=== PATIENT | female | born 1960 | race Caucasian/White ===

== ENCOUNTER 2016-10-21 12:39 | Outpatient (CLI) | payer OTHER ==
--- NOTE | 2016-10-21 15:12 | XRAY Report ---
EXAM: CHEST RADIOGRAPHY EXAM DATE: 10/21/2016 12:50 PM. CLINICAL HISTORY: HEMOPNEUMOTHORAX. COMPARISON: 09/14/2016. TECHNIQUE: 2 views. FINDINGS: Lungs/Pleura: There is right costophrenic sulcus opacity. Interval decrease in volume of right pleura l fluid. No evidence of pneumothorax. No evidence of focal infiltrate. Mediastinum: Heart and mediastinal contours are unremarkable. Other: There are remote displaced right-sided rib fractures. IMPRESSION: 1. Lung volumes and heart size within normal limits. 2. Interval decrease in volume of right effusion. There is persistent right pleural opacity which may represent residual effusion and/or pleural thickening. 3. There are remote right-sided rib fractures. 4. There is no evidence of pneumothorax. [facility] Referring Provider Line: [phone] SITE ID: [id number]
== END 2016-10-21 12:40 | disposition home or self-care (01) ==
LOC: DI 12:39
PROVIDERS: ATTEND Family Medicine
DX: J90 Pleural effusion, not elsewhere classified (principal)
CPT/HCPCS: 71020

== ENCOUNTER 2016-11-25 08:33 | Outpatient (CLI) | payer OTHER ==
--- NOTE | 2016-11-27 06:16 | CT Report ---
EXAM: CT CHEST AND ABDOMEN EXAM DATE: 11/25/2016 08:56 AM. CLINICAL HISTORY: Multiple fractures of ribs, right side, sequela. COMPARISONS: 11/14/2014. TECHNIQUE: Routine helical CT imaging was performed through the chest and abdomen. IV contrast: None Per physician order. Interpreting radiologist not involved with protocoling this study. Enteric contr ast: No. Reconstructions: Coronal and sagittal. In accordance with CT protocol optimization, one or more of the following dose reduction techniques w ere utilized for this exam: automated exposure control, adjustment of mA and/or KV based on patient s ize, or use of iterative reconstructive technique. FINDINGS: Lungs/Pleura: No pneumothorax or hemothorax. Mild right lower lobe scarring/atelectasis. No pneumonia or effusion. No suspicious mass or nodule seen. Mediastinum: No mediastinal hematoma. Heart and aorta appear unremarkable. No bulky adenopathy. Noncontrast abdominal organs: Grossly unremarkable noncontrast appearance to the liver, gallbladder, pancreas, adrenals, kidneys, and spleen with exception of a fatty liver. Peritoneal Cavity/Bowel: Bowel appears grossly unremarkable where seen. Pelvis not included on study. No free air or fluid seen. Vasculature: [id number] atherosclerotic disease of the aorta and branches. No aneurysm seen. Bones: Multilevel right-sided subacute and chronic appearing rib fractures. Right third through eight h rib fractures appear at least subacute and segmental. The lateral sixth through eighth right-sided rib fractures are moderately displaced with incomplete bony union. Mildly to moderately displaced posterior right ninth and tenth rib fractures. No left-sided rib fractures seen. No spinal fracture identified. Other: None. IMPRESSION: 1. Multiple right-sided rib fractures as above. No pneumothorax or hemothorax. 2. No gross abdominal organ injury on this suboptimal non-IV contrast study. 3. Fatty liver. [facility] Referring Provider Line: [phone] SITE ID: [id number]
== END 2016-11-25 08:34 | disposition home or self-care (01) ==
LOC: DI 08:33
PROVIDERS: ATTEND Family Medicine
DX: S22.41XD Multiple fractures of ribs, right side, subsequent encounter for fracture with routine healing (principal)
CPT/HCPCS: 71250; 74150

== ENCOUNTER 2017-03-10 12:34 | Outpatient (CLI) | payer OTHER ==
--- NOTE | 2017-03-11 00:02 | XRAY Report ---
EXAM: CHEST RADIOGRAPHY EXAM DATE: 03/10/2017 01:32 PM. CLINICAL HISTORY: CHEST WALL PAIN. COMPARISON: 10/21/2016. TECHNIQUE: 2 views. FINDINGS: Lungs/Pleura: No focal opacities evident. No pleural effusion. No pneumothorax. Normal volumes. Mediastinum: Heart and mediastinal contours are unremarkable. Other: There are remote right-sided rib fractures. IMPRESSION: 1. There are remote right-sided rib fractures. 2. No acute intrathoracic plain film abnormality. [facility] Referring Provider Line: [phone] SITE ID: [id number]
== END 2017-03-10 12:35 | disposition home or self-care (01) ==
LOC: DI 12:34
PROVIDERS: ATTEND Family Medicine
DX: R07.89 Other chest pain (principal); S22.41XS Multiple fractures of ribs, right side, sequela
CPT/HCPCS: 71046

== ENCOUNTER 2018-06-28 15:30 | Outpatient (CLI) | payer OTHER ==
--- NOTE | 2018-06-29 15:05 | XRAY Report ---
Reason: REACTIVE AIRWAY DISEASE Procedure Date: 06/28/2018 Accession Number: [id number] / [id number] Procedure: [facility] - Chest 2 View X-Ray CPT Code: 17667 FULL RESULT: EXAM: CHEST RADIOGRAPHY EXAM DATE: 06/28/2018 03:39 PM. CLINICAL HISTORY: REACTIVE AIRWAY DISEASE. COMPARISON: CHEST 2 VIEW 03/10/2017 1:26 PM. TECHNIQUE: 2 views. FINDINGS: Lungs/Pleura: No focal opacities evident. No pleural effusion. No pneumothorax. Normal volumes. Mediastinum: Heart and mediastinal contours are unremarkable. Other: There are remote right lateral rib fractures. IMPRESSION: No acute intrathoracic plain film abnormality. [facility]
== END 2018-06-28 15:31 | disposition home or self-care (01) ==
LOC: DI.WCP 15:30
PROVIDERS: ATTEND Physician Assistant Medical
DX: J45.909 Unspecified asthma, uncomplicated (principal)
CPT/HCPCS: 71046

== ENCOUNTER 2019-03-12 07:47 | Outpatient (CLI) | payer OTHER ==
--- NOTE | 2019-03-12 15:38 | XRAY Report ---
Reason: MULTIPLE RIB FRACTURES RIGHT SIDE Procedure Date: 03/12/2019 Accession Number: [id number] / [id number] Procedure: [facility]CP - Chest 2 View X-Ray CPT Code: 68697 Final Report FULL RESULT: EXAM: CHEST RADIOGRAPHY EXAM DATE: 03/12/2019 07:47 AM. CLINICAL HISTORY: MULTIPLE RIB FRACTURES RIGHT SIDE. COMPARISON: CHEST 2 VIEW 06/28/2018 3:24 PM CHEST 2 VIEW 03/10/2017 1:26 PM. TECHNIQUE: 2 views. FINDINGS: Lungs/Pleura: No focal opacities evident. No pleural effusion. Minimal blunting of the lateral right costophrenic sulcus suggesting pleural thickening, as before. No pneumothorax. Normal volumes. Mediastinum: Heart and mediastinal contours are unremarkable. Other: Multiple old lateral right rib fractures, as before. IMPRESSION: 1. Multiple chronic lateral right rib fractures, as before. 2. Lungs are clear. [facility]
== END 2019-03-12 23:59 | disposition home or self-care (01) ==
LOC: DI.WCP 07:47
PROVIDERS: ATTEND Family Medicine
DX: S22.41XS Multiple fractures of ribs, right side, sequela (principal)
CPT/HCPCS: 71046

== ENCOUNTER → 2019-03-12 | Outpatient (CLI) | payer OTHER ==
[2019-03-12 13:01] LABS: ALBUMIN 3.8 g/dL (3.2-5.5); ALBUMIN/GLOBULIN RATIO 1.3 (1.0-2.2); BILIRUBIN,TOTAL 0.6 mg/dL (0.2-1.0); CALCIUM 8.5 mg/dL (8.5-10.3); CREATININE 0.8 mg/dL (0.4-1.0); TOTAL PROTEIN 6.7 g/dL (6.7-8.2)
[2019-03-12 13:07] LABS: BASOPHILS # (AUTO) 0.1 10^3/uL (0.0-0.1); BASOPHILS % (AUTO) 0.7 %; EOSINOPHILS # (AUTO) 0.2 10^3/uL (0.0-0.7); EOSINOPHILS % (AUTO) 2.5 %; HGB - HEMOGLOBIN 13.3 g/dL (12.0-16.0); MEAN CORPUSCULAR HEMOGLOBIN 30.9 pg (27.0-31.0); MEAN CORPUSCULAR HGB CONC 32.4 g/dL (32.0-36.0); MEAN CORPUSCULAR VOLUME 95.1 fL (81.0-99.0); MEAN PLATELET VOLUME 10.1 fL (7.9-10.8); MONOCYTES # (AUTO) 0.6 10^3/uL (0.0-1.0); MONOCYTES % (AUTO) 8.6 %; NEUTROPHILS # (AUTO) 3.2 10^3/uL (1.5-6.6); NEUTROPHILS % (AUTO) 45.8 %; PLT - PLATELET COUNT 247 10^3/uL (130-450); RED BLOOD COUNT 4.31 10^6/uL (4.20-5.40); RED CELL DISTRIBUTION WIDTH 12.6 % (12.0-15.0); WHITE BLOOD COUNT 7.1 x10^3/uL (4.8-10.8)
[2019-03-12 13:12] LABS: PT - PROTHROMBIN TIME 11.1 secs (9.9-12.6)
[2019-03-12 13:30] LABS: BILIRUBIN,URINE NEGATIVE (NEGATIVE); GLUCOSE, URINE (UA) NEGATIVE (NEGATIVE); KETONES,URINE (UA) NEGATIVE (NEGATIVE); LEUKOCYTE ESTERASE, URINE NEGATIVE (NEGATIVE); NITRITE,URINE NEGATIVE (NEGATIVE); OCCULT BLOOD,URINE NEGATIVE (NEGATIVE); PROTEIN,URINE NEGATIVE (NEGATIVE); UROBILINOGEN,URINE 0.2 (NORMAL) E.U./dL (NORMAL)
[2019-03-12 13:32] LABS: CLARITY,URINE CLEAR (CLEAR)
[2019-03-12 13:35] LABS: PARTIAL THROMBOPLASTIN TIME 30.6 secs (24.9-33.3)
== END ==
LOC: LAB.WCP 07:15
PROVIDERS: ATTEND Family Medicine
DX: S22.41XS Multiple fractures of ribs, right side, sequela (principal); M54.14 Radiculopathy, thoracic region; Z79.891 Long term (current) use of opiate analgesic
CPT/HCPCS: 36415; 80053; 81001; 81003; 85025; 85610; 85730; 87086